=== PATIENT | female | born 1960 | race Caucasian/White ===

== ENCOUNTER 2017-06-02 09:28 | Day surgery (SDC) | payer OTHER, SELFPAY ==
[2017-05-30 10:03] VITALS: BMI 24.8
[2017-06-02] VITALS (11 sets, daily range): BP systolic 96–144; BP diastolic 64–94; PULSE 83–100; RESP 12–18; TEMP 36.3–36.6; O2SAT 94–99
[2017-06-02 10:18] LABS: POC Glucose,Bedside 109 mg/dL
--- NOTE | 2017-06-02 10:23 | [facility].PROC ---
[facility] Procedure Note Procedure Note:: Upper Endoscopy Procedure Report: Esophagogastroduodenoscopy with cold biopsies and TTS balloon dilation Endoscopost: Kailash Caicedo II, MD Referring Physician: Autumn Marquez MD Date of Procedure: June 02, 2017 Equipment: Olympus GIF 180 standard upper endoscope Sedation: Fentanyl 100 mg IV/ Versed 7 mg IV Indications: Mrs. Gonzalez is a 56-year-old female with long-standing dyspepsia. She also has had a history of sphincter of Oddi dysfunction. She had biliary sphincterotomy in December 2011 significant improvement. She had extension of biliary sphincterotomy in April 2013 and improved. She does have a history of IBS with constipation. Her colonoscopy in May 2013 showed no colon polyps but mild left-sided diverticulosis. The patient more recently has had epigastric abdominal discomfort which is both burning and painful. She has indigestion, heartburn, bloating, belching and dyspepsia. The patient has some early satiety. She reports some chest pressure that radiates into the back. She has occasional dysphagia and very frequent globus sensation with frequent clearance of the throat. She reports no nausea. She does have improvement when she takes the erythromycin which she resumed. She not always been with fiber bowel regimen. Procedure: Prior to the procedure, a history and physical exam was performed, and patient's medications and allergies were reviewed. The risks, benefits and alternatives of the sedation and procedure were discussed with the patient. All questions were answered and informed consent was obtained. The patient was brought to the procedure room. Patient identification and proposed procedure were verified by the physician and the nurse. The patient was placed in a left lateral decubitus position and the scope was passed under direct vision. Throughout the procedure, the patient's blood pressure, pulse, and oxygen saturations were monitored continuously. The upper GI endoscopy was accomplished without difficulty. The patient tolerated the procedure well. Findings: The scope was passed directly into the upper esophagus and advanced to the third portion of the duodenum. The post bulbar duodenum and duodenal bulb were normal with normal mucosa and conniventes. There was mild peptic duodenitis of the duodenal bulb. The scope was withdrawn through a normal pylorus into the stomach. There was moderate bile reflux with linear erythema of the antrum and body consistent with linear reactive gastritis. The remainder of the antrum, body and fundus of the stomach were grossly normal. Upon retroflexion there was a small 1-2 cm hiatal hernia. 2 biopsies were taken in the antrum and along the lesser curvature for histology and/or CLOtest. The scope was then withdrawn into the esophagus. There was a serrated Z line and biopsies were taken at the Z line to rule out intestinal metaplasia. There were tertiary contractions and evidence of moderate esophageal dysmotility. The entire esophagus was dilated to 60 [place]/20 mm with a TTS hydrostatic balloon with moderate resistance at the cricopharyngeus/cricopharyngeal (upper esophageal sphincter) spasm. The remainder of the esophageal mucosa was normal. Impression: 1. Cricopharyngeal spasm (upper esophageal sphincter spasm) status post dilation to 20 mm 2. Nonerosive GERD with moderate esophageal dysmotility and small 1-2 cm hiatal hernia 3. Moderate bile reflux with linear reactive gastritis Plan: I would recommend dietary measures, fiber bowel regimen, promotility therapy and treatment for visceral sensitivity. I will follow up the biopsies. We will discuss therapeutic options.
== END 2017-06-02 12:12 | disposition home or self-care (01) ==
LOC: OUTP 09:30
PROVIDERS: PCP Family Medicine; Visit Provider Internal Medicine Gastroenterology
PROC: 0DJ08ZZ Inspection of Upper Intestinal Tract, Via Natural or Artificial Opening Endoscopic (ICD-10-PCS; CPT 43235; principal; 2017-06-02 10:30)
DX: R13.10 Dysphagia, unspecified; K21.9 Gastro-esophageal reflux disease without esophagitis; K44.9 Diaphragmatic hernia without obstruction or gangrene; K22.4 Dyskinesia of esophagus; K29.60 Other gastritis without bleeding
CPT/HCPCS: 43239; 43249; 82962; 99152; C1726